=== PATIENT | male | born 1980 | race Caucasian/White ===

== ENCOUNTER 2017-07-22 05:25 | Inpatient (IN) | payer SELFPAY ==
[~2017-07-22] VITALS: Ht 167.6 cm; Wt 71.5 kg
[2017-07-22 06:09] LABS: EOSINOPHILS # (AUTO) 0.01 K/uL (0.00-0.70); EOSINOPHILS % (AUTO) 0.06 % (1.0-6.0); HEMOGLOBIN 17.1 g/dL (13.5-17.5); LYMPHOCYTES # (AUTO) 0.3 K/uL (1.0-4.8); LYMPHOCYTES % (AUTO) 2.4 % (22.0-44.0); MEAN CORPUSCULAR HEMOGLOBIN 31.4 pg (26.0-34.0); MEAN CORPUSCULAR HGB CONC 33.5 G/dL (31.0-37.0); MEAN CORPUSCULAR VOLUME 94 fL (80-100); MONOCYTES # (AUTO) 0.3 K/uL (0.1-1.0); MONOCYTES % (AUTO) 2.2 % (2.0-9.0); NEUTROPHILS # (AUTO) 13.4 K/uL (1.8-7.7); PLATELET COUNT (AUTO) 197 K/uL (150-450); RED BLOOD CELL COUNT(AUTO) 5.44 MIL/uL (4.50-5.90); RED CELL DISTRIBUTION WIDTH 14.6 % (11.5-14.5)
[2017-07-22 06:12] LABS: ANION GAP 11 mmol/L (8-16); CALCIUM, TOTAL 9.2 mg/dL (8.8-10.5); CARBON DIOXIDE 28 mmol/L (22-29); CHLORIDE 92 mmol/L (98-107); GLOMERULAR FILTR. RATE CALC > 60 mL/min (>60); GLUCOSE,RANDOM 204 mg/dL (70-110); POTASSIUM 4.3 mmol/L (3.5-5.1); SODIUM SERUM 131 mmol/L (136-145); UREA NITROGEN, BLOOD 15 mg/dL (7-18)
[2017-07-22 06:13] LABS: NEUTROPHILS % (AUTO) 95.3 % (40.0-70.0)
[2017-07-22 06:17] LABS: ALANINE AMINOTRANSFERASE 393 U/L (12-78); ALKALINE PHOSPHATASE 106 U/L (46-116); ASPARTATE AMINOTRANSFERASE 371 U/L (15-37); BILIRUBIN,TOTAL 1.4 mg/dL (0.1-1.0); LIPASE 118 U/L (73-393); TOTAL PROTEIN, SERUM 8.1 g/dL (6.4-8.2)
[2017-07-22 07:45] LABS: APPEARANCE,URINE CLEAR (CLEAR); GLUCOSE, URINE (UA) 500 mg/dL (NEGATIVE); KETONES,URINE 15 mg/dL (NEGATIVE); LEUKOCYTE ESTERASE ,URINE SMALL (NEGATIVE); NITRATE,URINE POSITIVE (NEGATIVE); OCCULT BLOOD,URINE NEGATIVE (NEGATIVE); PH,URINE 5.5 (5.0-8.0)
[2017-07-22 07:56] LABS: BILIRUBIN,URINE PRELIM. POSITIVE (NEGATIVE)
[2017-07-22 08:13] LABS: PROTEIN,URINE POS 1+ (NEGATIVE)
[2017-07-22 08:17] LABS: RBC,URINE 0-2 /HPF (0-2)
[2017-07-22 08:19] LABS: BACTERIA,URINE Moderate /HPF (None Seen); SQUAMOUS EPITHELIAL CELL,UR Rare /LPF (None Seen)
[2017-07-22 08:22] LABS: MUCUS,URINE Many LPF (None Seen)
[2017-07-22 08:30] LABS: AMPHET/METH SCREEN,URINE NEGATIVE (NEGATIVE); BARBITURATE SCREEN, URINE NEGATIVE (NEGATIVE); BENZODIAZEPINES SCREEN,URINE NEGATIVE (NEGATIVE); CANNABINOID SCREEN,URINE POSITIVE (NEGATIVE); COCAINE SCREEN,URINE NEGATIVE (NEGATIVE); METHADONE SCREEN, URINE NEGATIVE (NEGATIVE); OPIATE SCREEN,URINE NEGATIVE (NEGATIVE)
[2017-07-22] MEDS ORDERED: ONDANSETRON HCL 4 MG/2 ML VIAL IVP ONE (08:30)
[2017-07-22] MEDS ORDERED: MORPHINE SULFATE 4 MG/ML SYRINGE IVP ONE (08:30)
[2017-07-22] MEDS ORDERED: SODIUM CHLORIDE 0.9% 1,000 ML IV ONE ×2 (08:30→11:00)
[2017-07-22 08:35] LABS: PHENCYCLIDINE SCREEN,URINE NEGATIVE (NEGATIVE)
[2017-07-22] MEDS ORDERED: KETOROLAC TROMETHAMINE 30 MG/ML VIAL IVP ONE (08:45)
[2017-07-22] MEDS ORDERED: BARIUM SULFATE 0.1% SUSPENSION 450 ML BOTTLE PO ONE (10:00)
[2017-07-22] MEDS ORDERED: IOVERSOL 350 MG/ML 100 ML VIAL ONE (10:32)
[2017-07-22] MEDS ORDERED: MORPHINE SULFATE 2 MG/ML SYRINGE IVP ONE (11:00)
[2017-07-22] MEDS ORDERED: DEXTROSE 50%-WATER 25 GM/50 ML SYRINGE IVP ONE (12:00)
[2017-07-22] MEDS ORDERED: EPINEPHrine 1:10,000 [1 MG/10 ML] SYRINGE IVP ONE (12:00)
[2017-07-22] MEDS ORDERED: DIAZEPAM 5 MG/ML 2 ML SYRINGE IVP ONE ×2 (12:45→13:30)
[2017-07-22] MEDS ORDERED: MAGNESIUM SULFATE 2 GM, MVI, ADULT NO.1 WITH VIT K 10 ML, THIAMINE HCL 100 MG, FOLIC AC... IV ONE ×5 (13:30)
[2017-07-22 14:48] LABS: SPECIMENTYPE,BODY FLUID ASCITES
[2017-07-22 16:05] VITALS: BP 166/98
[2017-07-22] MEDS ORDERED: INFLUENZA VIRUS VACCINE QVS 2017-18 (3YR+)/PF 60 MCG/0.5 ML SYRINGE IM ONE (16:30)
[2017-07-22] MEDS ORDERED: ONDANSETRON HCL 4 MG/2 ML VIAL IVP PRN (16:45)
[2017-07-22] MEDS ORDERED: DOCUSATE SODIUM 100 MG CAPSULE PO PRN (16:45)
[2017-07-22] MEDS ORDERED: LORazepam 2 MG/ML VIAL IVP PRN (17:00)
[2017-07-22 18:44] LABS: APPEARANCE,SPUN,BODY FLUID HAZY (CLEAR); APPEARANCE,UNSPUN,BODY FLUID CLOUDY (CLEAR); COLOR,BODY FLUID AMBER (LT YELLOW)
[2017-07-22 18:45] LABS: BASOPHILS,BODY FLUID 0 %; EOSINOPHILS,BF (ANAL) 0 %; LYMPHOCYTES,BODY FLUID 5 %; MONOCYTES,BODY FLUID 6 %; NEUTROPHILS,BODY FLUID 89 %; OTHER CELLS,BODY FLUID 0; TOTAL VOLUME,BODY FLUID 1000 mL; WBC, BODY FLUID 9220 /cu. mm.
[2017-07-22 18:47] VITALS: BP 106/73
[2017-07-22] MEDS: ChlordiazePOXIDE HCL 25 MG CAPSULE PO SCH ×2 (18:54→21:08)
[2017-07-22] MEDS: DEXTROSE 5%-0.9% SODIUM CHL 1,000 ML IV SCH (18:54)
[2017-07-22 19:50] VITALS: BP 111/76
[2017-07-22] MEDS: PANTOPRAZOLE SODIUM 40 MG/VIAL IVP SCH (21:08)
[2017-07-22] MEDS: MORPHINE SULFATE 2 MG/ML SYRINGE IVP PRN (21:11)
[2017-07-22 23:38] VITALS: BP 114/69
[2017-07-23] MEDS: ChlordiazePOXIDE HCL 25 MG CAPSULE PO SCH ×2 (01:08→06:35)
[2017-07-23] MEDS ORDERED: SODIUM CHLORIDE 0.9% 100 ML ONE (01:12)
[2017-07-23] MEDS: DEXTROSE 5%-0.9% SODIUM CHL 1,000 ML IV SCH (04:04)
[2017-07-23] MEDS: MORPHINE SULFATE 2 MG/ML SYRINGE IVP PRN (04:06)
[2017-07-23 04:13] VITALS: BP 111/75
[2017-07-23 06:51] LABS: BASOPHILS % (AUTO) 0.2 % (0.0-2.0); EOSINOPHILS % (AUTO) 0.2 % (1.0-6.0); HEMOGLOBIN 18.5 g/dL (13.5-17.5); LYMPHOCYTES # (AUTO) 0.6 K/uL (1.0-4.8); MEAN CORPUSCULAR HEMOGLOBIN 32.1 pg (26.0-34.0); MEAN CORPUSCULAR HGB CONC 34.2 G/dL (31.0-37.0); MEAN CORPUSCULAR VOLUME 94 fL (80-100); MONOCYTES # (AUTO) 0.2 K/uL (0.1-1.0); MONOCYTES % (AUTO) 6.9 % (2.0-9.0); NEUTROPHILS # (AUTO) 2.6 K/uL (1.8-7.7); NEUTROPHILS % (AUTO) 74.7 % (40.0-70.0); PLATELET COUNT (AUTO) 166 K/uL (150-450); RED BLOOD CELL COUNT(AUTO) 5.77 MIL/uL (4.50-5.90)
[2017-07-23 07:00] VITALS: BP 121/92
[2017-07-23 07:01] LABS: INR 1.3 (0.9-1.1); PROTHROMBIN TIME 13.7 SEC (9.4-11.6)
[2017-07-23 07:48] LABS: ABG CARBOXYHEMOGLOBIN 0.2 % (0.0-1.5); ABG METHEMOGLOBIN 0.5 % (0.0-1.5); ABG OXYGEN SATURATION 99.9 % (95.0-98.0); ABG OXYHEMOGLOBIN 99.2 % (94.0-100.0); ABG TOTAL HEMOGLOBIN 19.8 G/dL (12.0-18.0); SOURCE, BLOOD GAS ARTERIAL; TEMPERATURE, FAHRENHEIT, BG 98.6 FAHREN (96.0-98.6)
[2017-07-23 07:51] LABS: ABG HCO3 15.1 mmol/L (22.0-26.0); ABG OXYGEN CONTENT 28.7 mL/dL (15.0-23.0); ABG PH 7.312 (7.350-7.450); PO2, ARTERIAL BG 453.3 mmHg (92.0-100.0)
[2017-07-23 07:52] LABS: ABG PCO2 21 mmHg (35-45); O2 DEVICE,BLOOD GAS NON REBREATHER (ROOM AIR); SITE, BLOOD GAS RT BRACHIAL
[2017-07-23 08:20] VITALS: BP 95/49
[2017-07-23 08:25] VITALS: BP 89/63
[2017-07-23 08:44] VITALS: BP 89/54
[2017-07-23 09:10] VITALS: BP 88/52
[2017-07-23] MEDS ORDERED: LORazepam 2 MG/ML VIAL IVP ONE (09:30)
[2017-07-23] MEDS ORDERED: MORPHINE SULFATE 4 MG/ML SYRINGE IVP PRN (09:30)
[2017-07-23] MEDS ORDERED: MAGNESIUM SULFATE 2 GM, MVI, ADULT NO.1 WITH VIT K 10 ML, THIAMINE HCL 100 MG, FOLIC AC... IV ONE ×10 (09:30)
[2017-07-23] MEDS ORDERED: METOPROLOL TARTRATE 25 MG TABLET PO ONE (09:30)
[2017-07-23] MEDS: PANTOPRAZOLE SODIUM 40 MG/VIAL IVP SCH (09:46)
[2017-07-23] MEDS ORDERED: SODIUM CHLORIDE 0.9% 1,000 ML IV ONE (09:56)
[2017-07-23 10:02] LABS: CALCIUM, TOTAL 7.7 mg/dL (8.8-10.5); CREATININE 3.03 mg/dL (0.60-1.30); MAGNESIUM 2.5 mg/dL (1.80-2.40); POTASSIUM 4.4 mmol/L (3.5-5.1)
[2017-07-23] MEDS ORDERED: DEXTROSE 50%-WATER 25 GM/50 ML SYRINGE IVP ONE (10:53)
[2017-07-23] MEDS ORDERED: ChlordiazePOXIDE HCL 25 MG CAPSULE PO SCH (18:00)
[2017-07-25 20:07] LABS: GLUCOMETER DEV NAME(LOC) 5S 2N; GLUCOSE,POINT OF CARE 47 MG/DL (70-110)
== END 2017-07-23 10:55 | disposition expired | DRG 442 ==
LOC: EMS 05:27 → 5N 15:10 → 5S 15:10
PROVIDERS: ADMIT Hospitalist; ATTEND Hospitalist
PROC: 0W9G3ZZ Drainage of Peritoneal Cavity, Percutaneous Approach (ICD-10-PCS; 2017-07-22)
PROC: 0BH17EZ Insertion of Endotracheal Airway into Trachea, Via Natural or Artificial Opening (ICD-10-PCS; principal; 2017-07-23)
DX: K72.90 Hepatic failure, unspecified without coma (principal); F10.231 Alcohol dependence with withdrawal delirium; I46.9 Cardiac arrest, cause unspecified; R18.8 Other ascites; K76.0 Fatty (change of) liver, not elsewhere classified; F17.210 Nicotine dependence, cigarettes, uncomplicated; K29.20 Alcoholic gastritis without bleeding
CPT/HCPCS: 49083; 74177; 76942; 82805; 82962; 83735; 87070; 87086; 87205; 89051; 93005; C9113; J0171; J1885; J2060; J2270; J2405; J3411; J3475; J3490; J7030; J7042; J7050